=== PATIENT | female | born 1960 | race Caucasian/White ===

== ENCOUNTER → 2019-08-16 12:37 | Outpatient (CLI) | payer OTHER, SELFPAY ==
--- NOTE | 2019-08-16 | DI.MRI.S_ITS ---
PROCEDURE: MR ANKLE LT WO CON INDICATIONS: CHRONIC LATERAL ANKLE PAIN LEFT TECHNIQUE: Noncontrast sagittal T1 spin echo and T2 fast spin echo with fat saturation, axial proton density fast spin echo and T2 fast spin echo with fat saturation, coronal T1 spin echo and T2 fast spin echo with fat saturation through the ankle/hindfoot. COMPARISON: None. FINDINGS: Image quality: Diagnostic Bones and joints: No acute fracture, dislocation, or suspicious osseous lesion is identified involving the osseous structures of the left midfoot or hindfoot. Ankle mortise is well-maintained. There are no osteochondral defects identified involving the tibial plafond toward the talar dome. Os trigonum is noted. There mild degenerative changes evident involving the posterior subtalar and talonavicular joints. No significant joint effusions are appreciated. Medial structures: The deltoid and spring ligaments are intact. However, there is slight increased signal noted involving the deltoid ligament. The tibialis posterior tendon, flexor digitorum longus tendon, and flexor hallucis longus tendons are intact. Small amount of fluid is contained within their corresponding tendon sheaths. The posterior tibial nerve to the region of the tarsal tunnel is unremarkable and normal in course and caliber. Lateral structures: The anterior and posterior distal tibiofibular ligaments are intact. The anterior talofibular ligament probably is completely torn and not adequately seen on this exam. The posterior talofibular ligament demonstrates slight increased signal. The calcaneofibular ligament probably is intact. Medial subluxation of the peroneus brevis tendon at the tip of the lateral malleolus is identified without significant tearing evident. There is mild thickening involving the peroneus longus tendon along the posterior margin of the lateral malleolus. A tiny amount of fluid is extending into their corresponding tendon sheaths. Anterior structures: The tibialis anterior, extensor hallucis longus, and extensor digitorum longus tendons appear intact. Posterior and plantar structures: Achilles tendon is intact. Medial and lateral bands of the plantar fascia are of normal thickness. IMPRESSION: 1. 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 There may be posterior talofibular ligament sprain. 2. Mild peroneus longus tendinopathy with corresponding minimal tenosynovitis. 3. Possible mild tenosynovitis involving the medial flexor tendons. 4. The deltoid ligament sprain without significant tearing. 5. Mild degenerative changes of the posterior subtalar and talonavicular joints. Dictated by: Branden Manzanares M.D. on 08/16/2019 at 13:56 Approved by: Branden Manzanares M.D. on 08/16/2019 at 14:00
== END ==
PROVIDERS: Visit Provider Podiatrist
DX: M25.572 Pain in left ankle and joints of left foot (principal); S93.422A Sprain of deltoid ligament of left ankle, initial encounter; S93.492A Sprain of other ligament of left ankle, initial encounter; G89.29 Other chronic pain
CPT/HCPCS: 73721